=== PATIENT | female | born 1970 | race Caucasian/White ===

== ENCOUNTER 2016-11-28 19:56 | Emergency (ER) | payer OTHER ==
[2016-11-28 20:24] VITALS: TEMP 98.2
[2016-11-28] MEDS ORDERED: METOCLOPRAMIDE 10 MG/2 ML VIAL IVP ONE (20:25)
[2016-11-28] MEDS ORDERED: NS 1,000 ML IV ONE (20:25)
[2016-11-28] MEDS ORDERED: DEXAMETHASONE 10 MG/ML VIAL IVP ONE (20:25)
[2016-11-28] MEDS ORDERED: KETOROLAC 15 MG/1 ML SDV IVP ONE (20:39)
--- NOTE | 2016-11-28 20:42 | EDPHY ---
H & P Time Seen by Provider: 11/28/16 20:17 HPI/ROS: CHIEF COMPLAINT: Migraine headache HISTORY OF PRESENT ILLNESS: This is a 46-year-old female presents to the emergency department reporting a migraine headache which she has had for 2 days. Patient has a long history of prolonged headaches, sometimes lasting weeks at a time, for which she is followed by neurologist. Her headache seemed to stem from a cervical nerve impingement. Today's headache has been typical, starting in her neck with radiation to bilateral parietal areas. Worse with light. Nausea and vomiting. Her current regiment includes Maxalt, diclofenac, Topamax, and tizandine. Patient denies any fevers or chills, any sinus congestion, any upper respiratory infection symptoms, any head trauma. She denies any diarrhea, urinary complaints, or lightheadedness. She specifically denies anything unusual about today's headache. She does go see a physical therapist 2 times a week and have her physical therapy appointment today. REVIEW OF SYSTEMS: Aside from elements discussed in the HPI, a comprehensive 10-point review of systems was reviewed and is negative. PAST MEDICAL HISTORY: Migraine headaches, asthma SOCIAL HISTORY: Patient is . Nonsmoker. VITAL SIGNS Reviewed by me. GENERAL: Well-developed, well-nourished, resting in a dark room. Alert, conversant. HEENT: Atraumatic. Eyes: PERRL, EOMI, no nystagmus. No icterus. No injection. Mouth: moist mucous membranes. No erythema or lesions. Neck: No meningitis. No midline tenderness palpation. Patient does have some tenderness and spasm left paraspinous region. No adenopathy. Negative Kernig 's. Negative Brudzinski's. No meningismus. LUNGS: Clear to auscultation bilaterally, no wheezes, rhonchi or rales. CARDIAC: Regular rate and rhythm, no rubs, murmurs or gallops. ABDOMEN: Soft, nontender, nondistended, bowel sounds normal. BACK: No CVA tenderness. EXTREMITIES: No trauma. No edema. Range of motion is normal throughout. NEURO: Alert and oriented, cranial nerves II through XII are intact. Motor strength 5 over 5 in all major muscle groups. Sensation intact to light touch. Normal gait. SKIN: Warm and dry, no rash. PSYCHIATRIC: Normal mentation, no agitation. Smoking Status: Never smoked Constitutional: Initial Vital Signs Temperature (C) 36.8 C 11/28/16 20:20 Heart Rate 68 11/28/16 20:20 Respiratory Rate 16 11/28/16 20:20 Blood Pressure 131/90 H 11/28/16 20:20 O2 Sat (%) 97 11/28/16 20:20 O2 Delivery Mode Room Air Allergies/Adverse Reactions: cephalexin monohydrate [From Keflex] Allergy (Verified 11/28/16 20:11) cyclobenzaprine HCl [From Amrix] Allergy (Verified 11/28/16 20:11) erythromycin base [Erythromycin Base] Allergy (Verified 11/28/16 20:11) gabapentin [From Gralise] Allergy (Verified 11/28/16 20:11) Penicillins Allergy (Verified 11/28/16 20:11) Sulfa (Sulfonamide Antibiotics) Allergy (Verified 11/28/16 20:11) Tetracyclines Allergy (Verified 11/28/16 20:11) Home Medications: Medication Instructions Recorded Astepro 09/15/15 Claritin 09/15/15 Diazepam PRN 09/15/15 Diclofenac Sodium 09/15/15 Gabapentin 09/15/15 Maxalt PRN 09/15/15 Topamax 09/15/15 Zofran Odt 09/15/15 Atrovent Hfa (*) 02/08/16 Botox 02/08/16 Imitrex 02/08/16 Asmanex 11/28/16 Astepro 11/28/16 Tizanidine HCl 11/28/16 Medical Decision Making ED Course/Re-evaluation: IV was established. Patient's prior records were reviewed. Patient received Reglan, Decadron, Benadryl, and Toradol 15 mg. She has recently taken her diclofenac, however, she reports the Toradol as quite effective in helping her pain. Patient will receive a L of normal saline. Chem 7 was ordered. Patient's BUN and creatinine were checked prior to administration of Toradol, 15 mg. Patient also had a lidocaine patch applied to her neck. 10 p.m.: Patient was reexamined. She reports her discomfort is much improved, down to 3/10. She wishes to be discharged home. Her is here. Patient was discharged with a prepack of oxycodone and instructions to take it when she arrives home to help with any residual pain. She also reports that is lidocaine patch provided good relief of her neck pain. Please see the discharge instructions. Differential Diagnosis: After history was obtained, and the physical exam performed, a differential for headache was considered including, but not limited to, subarachnoid hemorrhage, migraine headache, tension headache and infectious causes such as meningitis, sinusitis, encephalitis. - Data Points Laboratory Results: Laboratory Results 11/28/16 20:24 Medications Given: Discontinued Medications Dexamethasone (Decadron Injection) 10 mg IVP EDNOW ONE Stop: 11/28/16 20:26 Last Admin: 11/28/16 20:42 Dose: 10 mg Diazepam (Valium Injection) 5 mg IVP EDNOW ONE Stop: 11/28/16 20:48 Last Admin: 11/28/16 21:01 Dose: 5 mg Diphenhydramine HCl (Benadryl Injection) 25 mg IVP EDNOW ONE Stop: 11/28/16 20:26 Last Admin: 11/28/16 20:42 Dose: 25 mg Sodium Chloride (Ns) 1,000 mls @ 0 mls/hr IV ONCE ONE; Wide Open PRN Reason: Protocol Stop: 11/28/16 20:26 Last Admin: 11/28/16 20:30 Dose: 1,000 mls Ketorolac Tromethamine (Toradol) 15 mg IVP EDNOW ONE Stop: 11/28/16 20:40 Last Admin: 11/28/16 20:54 Dose: 15 mg Lidocaine (Lidoderm 5%) 1 ea TD EDNOW ONE Stop: 11/28/16 20:48 Last Admin: 11/28/16 21:04 Dose: 1 ea Metoclopramide HCl (Reglan Injection) 10 mg IVP EDNOW ONE Stop: 11/28/16 20:26 Last Admin: 11/28/16 20:42 Dose: 10 mg Miscellaneous Information (Patch Removal) 1 ea TD DAILY21 CADEN Stop: 05/27/17 20:59 Last Admin: 11/28/16 21:22 Dose: Not Given Oxycodone/Acetaminophen (Percocet 5/325mg Prepack#4) 1 btl TAKEHOME EDNOW ONE Stop: 11/28/16 21:58 Last Admin: 11/28/16 22:02 Dose: 1 btl Departure - Departure Disposition: Home, Routine, Self-Care Clinical Impression: Neck pain on left side Migraine headache Qualifiers: Migraine type: unspecified Status migrainosus presence: without status migrainosus Intractability: not intractable Qualified Code(s): G43.909 - Migraine, unspecified, not intractable, without status migrainosus Condition: Good Instructions: Oxycodone/Acetaminophen (By mouth), Lidocaine Patch (On the skin) , Migraine Headache (ED) Additional Instructions: You been given a prepack of Percocet. Please take 1-2 Percocets when you arrived home in order to help with any residual pain. The should help you sleep. You may obtain lidocaine patches [id number] at any pharmacy such as [facility] or [facility]. If you're headache is worsening, if he developed new symptoms such as numbness or tingling in her arms, legs, visual complaints, confusion, fever, or other concerns, please return to the emergency department or seek care urgently. Otherwise please follow up with your primary neurologist for ongoing treatment. Referrals: Jarred Hickman DO [Primary Care Provider] - As per Instructions
[2016-11-28] MEDS ORDERED: LIDOCAINE 5% 1 EA PATCH TD ONE (20:47)
[2016-11-28] MEDS ORDERED: DIAZEPAM 10 MG/2 ML SYR IVP ONE (20:47)
[2016-11-28 20:59] LABS: ANION GAP 11 mEq/L (8-16); CALCIUM 8.8 mg/dL (8.5-10.4); CARBON DIOXIDE 17 mEq/l (22-31); CHLORIDE 108 mEq/L (97-110); CREATININE 0.9 mg/dL (0.6-1.0); GLOMERULAR FILTRATION RATE > 60; GLUCOSE 92 mg/dL (70-100); POTASSIUM 3.7 mEq/L (3.5-5.2); SODIUM 136 mEq/L (134-144)
[2016-11-28] MEDS ORDERED: PATCH REMOVAL 1 EA PATCH TD SCH (21:00)
[2016-11-28] MEDS ORDERED: OXYCODONE/APAP 5/325MG PREPACK#4 BTL TAKEHOME ONE (21:57)
[2016-11-28 22:17] VITALS: BP 132/84; PULSE 72; RESP 14; O2SAT 96
== END 2016-11-28 22:10 | disposition home or self-care (01) ==
LOC: CED 19:56
DX: G43.909 Migraine, unspecified, not intractable, without status migrainosus (principal); M54.2 Cervicalgia; J45.909 Unspecified asthma, uncomplicated; E86.9 Volume depletion, unspecified
CPT/HCPCS: 80048-PO; 96374; J1100; J1200; J1885; J2765

== ENCOUNTER → 2017-07-05 | Emergency (ER) | payer OTHER ==
[~2017-07-05] MED LIST: DEXAMETHASONE 10 MG/ML VIAL IVP ONE; HALOPERIDOL LACT 5 MG/ML INJ IVP ONE; KETOROLAC 30 MG/1 ML SDV IVP ONE; LIDOCAINE 4%/MENTHOL 1% PATCH TD ONE; METOCLOPRAMIDE 10 MG/2 ML VIAL IVP ONE; NS 1,000 ML IV ONE; OXYCODONE/APAP 5/325MG PREPACK#4 BTL TAKEHOME ONE; PATCH REMOVAL 1 EA PATCH TD SCH
--- NOTE | 2017-07-05 14:05 | EDPHY ---
H & P Smoking Status: Never smoked Time Seen by Provider: 07/05/17 13:51 HPI/ROS: Chief complaint. Headache HPI. Patient is a 47-year-old female with history of migraines. She presents with typical migraine headache without alarming features for the past 4 days. Her regular medications however had taking care for headache. She has had nausea vomiting. Denies focal weakness paresthesias. No recent head injury. No recent illness or fever. No focal weakness or paresthesias. No chest discomfort or trouble breathing. Similar symptoms previously. Patient's neck is bothering her after mopping the floor to sell their house several days ago. Patient frequently has migraines triggered by exacerbation of neck pain. ROS Constitutional. no fever/chills, no weakness Eyes. no problems with vision ENT. no sore throat, no nasal drainage Cardiovascular. no chest pain Respiratory. no shortness of breath, no cough Abdominal. Nausea and vomiting . no problems urinating MS. no calf pain/swelling, no neck/back pain, no joint pain Skin. no rash Lymph. no swollen glands Neuro. Headache (Ramirez Kingsley) Past Medical/Surgical History: Chronic low back pain, uterine ablation, tubal ligation, ovarian cyst, migraines , asthma (Ramirez Kingsley) Social History: , nonsmoker, no alcohol (Ramirez Kingsley) Physical Exam: General Appearance: Alert well-developed female mild distress vital signs are stable. Afebrile Eyes: Pupils equal and round no pallor or injection. ENT, Mouth: Mucous membranes are moist. Respiratory: There are no retractions, lungs are clear to auscultation. Cardiovascular: Regular rate and rhythm. Gastrointestinal: Abdomen is soft and nontender, no masses, bowel sounds normal. Neurological: Awake and alert, sensory and motor exams grossly normal. Speech is normal. Cranial nerves are normal. There is no pronator drift. No altered sensation Skin: Warm and dry, no rashes. Musculoskeletal: Neck is supple nontender. Extremities symmetrical, full range of motion. Psychiatric: Patient is oriented X 3, there is no agitation. (Ramirez Kingsley S) Constitutional: Initial Vital Signs Temperature (C) 36.4 C 07/05/17 13:17 Heart Rate 71 07/05/17 13:17 Respiratory Rate 16 07/05/17 13:17 Blood Pressure 122/78 H 07/05/17 13:17 O2 Sat (%) 97 07/05/17 13:17 O2 Delivery Mode Room Air Allergies/Adverse Reactions: cephalexin monohydrate [From Keflex] Allergy (Verified 07/05/17 13:13) cyclobenzaprine HCl [From Amrix] Allergy (Verified 07/05/17 13:13) erythromycin base [Erythromycin Base] Allergy (Verified 07/05/17 13:13) gabapentin [From Gralise] Allergy (Verified 07/05/17 13:13) Penicillins Allergy (Verified 07/05/17 13:13) Sulfa (Sulfonamide Antibiotics) Allergy (Verified 07/05/17 13:13) Tetracyclines Allergy (Verified 07/05/17 13:13) artificial sweetners Allergy (Uncoded 07/05/17 13:14) Home Medications: Medication Instructions Recorded Astepro 09/15/15 Claritin 09/15/15 Diazepam PRN 09/15/15 Diclofenac Sodium 09/15/15 Gabapentin 09/15/15 Topamax 09/15/15 Zofran Odt 09/15/15 Atrovent Hfa (*) 02/08/16 Botox 02/08/16 Imitrex 02/08/16 Asmanex 11/28/16 Tizanidine HCl 11/28/16 Medical Decision Making Procedures: IV normal saline. IV Reglan, Benadryl, Decadron, Toradol. 1 L of saline. Lidocaine patch to neck. (Ramirez Kingsley) ED Course/Re-evaluation: Re-evaluation at 2:30 p.m.. Patient is stable but unchanged as she has not received any medication yet. She does have an IV and a L of saline running. ( Ramirez Kingsley) 3:30 p.m. the patient continues to have headache only minimally improved. I will add Haldol. 4:30 p.m. patient feels somewhat better but still has a headache. She is eager to go and declines further treatment or observation. She will follow up with her neurologist Dr. Ayala at [facility]. I encouraged her to return if her symptoms worsen or change. (Roverto Valdes) Differential Diagnosis: This sounds like typical migraine. No alarming symptoms of focal weakness or paresthesia. (Ramirez Kingsley) Care Turn Over: Dr. Valdes at 3 pm (Ramirez Kingsley) - Data Points Medications Given: Miscellaneous Information (Patch Removal) 1 ea TD DAILY21 CADEN Stop: 01/01/18 20:59 Last Admin: 07/05/17 16:01 Dose: 1 ea Discontinued Medications Dexamethasone (Decadron Injection) 10 mg IVP EDNOW ONE Stop: 07/05/17 14:06 Last Admin: 07/05/17 14:48 Dose: 10 mg Diphenhydramine HCl (Benadryl Injection) 12.5 mg IVP EDNOW ONE Stop: 07/05/17 14:06 Last Admin: 07/05/17 14:40 Dose: 12.5 mg Haloperidol Lactate (Haldol Injection) 5 mg IVP EDNOW ONE Stop: 07/05/17 15:34 Last Admin: 07/05/17 15:52 Dose: 5 mg Sodium Chloride (Ns) 1,000 mls @ 0 mls/hr IV ONCE ONE; Wide Open PRN Reason: Protocol Stop: 07/05/17 14:06 Last Admin: 07/05/17 14:18 Dose: 1,000 mls Ketorolac Tromethamine (Toradol) 15 mg IVP EDNOW ONE Stop: 07/05/17 14:06 Last Admin: 07/05/17 14:52 Dose: 15 mg Metoclopramide HCl (Reglan Injection) 10 mg IVP EDNOW ONE Stop: 07/05/17 14:06 Last Admin: 07/05/17 14:43 Dose: 10 mg Miscellaneous Medication (Icy Hot Lidocaine/Menthol 4%/1% Patch) 1 patch TD EDNOW ONE Stop: 07/05/17 14:06 Last Admin: 07/05/17 14:54 Dose: 1 patch Oxycodone/Acetaminophen (Percocet 5/325mg Prepack#4) 1 btl TAKEHOME EDNOW ONE Stop: 07/05/17 15:03 Last Admin: 07/05/17 15:58 Dose: 1 btl Departure - Departure Disposition: Home, Routine, Self-Care Clinical Impression: Migraine headache Qualifiers: Migraine type: unspecified Status migrainosus presence: without status migrainosus Intractability: not intractable Qualified Code(s): G43.909 - Migraine, unspecified, not intractable, without status migrainosus Condition: Good Instructions: Oxycodone/Acetaminophen (By mouth), Migraine Headache (ED) Additional Instructions: Continue regular medications. Return for worsening headache, fever. Percocet for any residual headache using 1 pill every 4-6 hours as needed for headache. Re-evaluation 1-2 days if not improving Referrals: NONE *PRIMARY CARE P,. [Primary Care Provider] - As per Instructions
[2017-07-05 16:58] VITALS: BP 121/72
== END | disposition home or self-care (01) ==
LOC: CED 13:07
DX: G43.909 Migraine, unspecified, not intractable, without status migrainosus (principal); J45.909 Unspecified asthma, uncomplicated; E86.9 Volume depletion, unspecified
CPT/HCPCS: 96374; J1100; J1200; J1630; J1885; J2765

== ENCOUNTER → 2018-04-12 | Outpatient (CLI) | payer OTHER | LOC: FIMAGING 11:45 | PROVIDERS: ATTEND Obstetrics & Gynecology | DX: Z12.31 Encounter for screening mammogram for malignant neoplasm of breast (principal) ==